=== PATIENT | male | born 1965 | race Caucasian/White ===

== ENCOUNTER 2017-10-16 15:40 | Inpatient (IN) | payer OTHER ==
[~2017-10-16] VITALS: Ht 182.9 cm; Wt 83.2 kg
[2017-10-16 15:48] VITALS: BP 167/120
[2017-10-16 16:50] LABS: BASO # 0.1 10*3/uL (0.0-0.1); BASO % 1.4 % (0.0-1.0); EOS # 0.1 10*3/uL (0.0-0.4); EOS % 1.7 % (1.0-4.0); HEMATOCRIT 45.7 % (42.0-52.0); HEMOGLOBIN 16.5 g/dl (14.0-18.0); LYMPH # 1.9 10*3/uL (1.3-4.4); MEAN CELL VOLUME 99.3 fl (80.0-94.0); MEAN CORPUSCULAR HGB 35.9 pg (27.0-31.0); MEAN CORPUSCULAR HGB CONC 36.1 g/dl (33.0-37.0); MEAN PLATELET VOLUME 8.8 fl (9.6-12.3); MONO # 0.3 10*3/uL (0.1-1.0); NEUT # 1.2 10*3/uL (2.3-7.9); NEUT % 33.9 % (47.0-73.0); PLATELET COUNT AUTOMATED 115 10*3/uL (130-400); RED CELL DISTRI WIDTH 12.4 % (0-14.5); WHITE BLOOD COUNT 3.5 10*3/uL (4.8-10.8)
[2017-10-16 16:59] LABS: ACT PARTIAL THROMBO TIME 21.8 SECONDS (20.8-31.5); INTERNATIONAL NORM RATIO 0.9 (2.0-3.5)
[2017-10-16 17:06] LABS: ALBUMIN 4.1 gm/dl (3.1-4.5); ALKALINE PHOSPHATASE 65 U/L (45-117); BUN 9 mg/dl (7-24); CHLORIDE 104 mmol/L (98-107); CREATININE 0.98 mg/dL (0.70-1.30); POTASSIUM 3.5 mmol/L (3.5-5.1); SGOT/AST 191 IU/L (3-35); SGPT/ALT 110 U/L (12-78); SODIUM 141 mmol/L (136-145); TOTAL PROTEIN 8.8 gm/dL (6.4-8.2)
[2017-10-16 17:17] VITALS: BP 144/90
[2017-10-17 06:46] VITALS: BP 132/70
[2017-10-17 07:49] VITALS: BP 116/93
[2017-10-17 07:52] LABS: BASO % 1.5 % (0.0-1.0); EOS # 0.1 10*3/uL (0.0-0.4); EOS % 2.3 % (1.0-4.0); HEMATOCRIT 43.9 % (42.0-52.0); HEMOGLOBIN 15.1 g/dl (14.0-18.0); LYMPH # 1.2 10*3/uL (1.3-4.4); MEAN CELL VOLUME 101.2 fl (80.0-94.0); MEAN CORPUSCULAR HGB 34.8 pg (27.0-31.0); MEAN CORPUSCULAR HGB CONC 34.4 g/dl (33.0-37.0); MEAN PLATELET VOLUME 8.8 fl (9.6-12.3); MONO # 0.3 10*3/uL (0.1-1.0); MONO % 12.8 % (3.0-9.0); PLATELET COUNT AUTOMATED 97 10*3/uL (130-400); RED BLOOD COUNT 4.34 10*6/uL (4.50-5.90); RED CELL DISTRI WIDTH 12.4 % (0-14.5); WHITE BLOOD COUNT 2.7 10*3/uL (4.8-10.8)
[2017-10-17 08:06] LABS: ALBUMIN 3.8 gm/dl (3.1-4.5); ALKALINE PHOSPHATASE 57 U/L (45-117); BUN 12 mg/dl (7-24); CHLORIDE 102 mmol/L (98-107); CREATININE 0.99 mg/dL (0.70-1.30); POTASSIUM 3.7 mmol/L (3.5-5.1); SGOT/AST 186 IU/L (3-35); SGPT/ALT 104 U/L (12-78); SODIUM 138 mmol/L (136-145)
[2017-10-17 08:32] VITALS: BP 116/93
[2017-10-17 09:25] LABS: BILIRUBIN 1+ (NEGATIVE); BLOOD 1+ (NEGATIVE); CLARITY CLOUDY (CLEAR); COLOR YELLOW (YELLOW); GLUCOSE NEGATIVE (NEGATIVE); KETONE TRACE (NEGATIVE); LEUKO ESTERASE TRACE (NEGATIVE); NITRITE NEGATIVE (NEGATIVE); PH 5.5 (5.0-9.0); SPECIFIC GRAVITY 1.025 (1.005-1.030)
[2017-10-17 09:33] LABS: URINE AMPHETAMINES < 1000 (1000ng/ml); URINE BARBITURATES < 200 (200ng/ml); URINE BENZODIAZEPINES < 200 (200ng/ml); URINE CANNABINOIDS (THC) < 50 (50ng/ml); URINE COCAINE < 300 (300ng/ml); URINE METHADONE < 300 (300ng/ml); URINE OPIATES < 300 (300ng/ml)
[2017-10-17 09:34] LABS: URINE PHENCYCLIDINE < 25 (25ng/ml)
[2017-10-17 09:45] LABS: WBC 16-20 wbc/hpf (0-5)
[2017-10-17 09:47] LABS: BACTERIA 1+; MUCOUS 1+
[2017-10-17 16:00] VITALS: BP 121/93
[2017-10-17 20:00] VITALS: BP 142/98
[2017-10-18] VITALS: BP 113/85
[2017-10-18 04:00] VITALS: BP 120/60
[2017-10-18 08:00] VITALS: BP 144/88
[2017-10-18 09:05] LABS: HEPATITIS B SURFACE AG Negative (Negative)
[2017-10-18 10:09] LABS: HEPATITIS C VIRUS ANTIBODY >11.0 s/co (0.0-0.9)
[2017-10-18 12:00] VITALS: BP 137/94
[2017-10-19 03:08] LABS: GONOCOCCUS BY NAA Negative (Negative)
== END 2017-10-18 15:47 | disposition left against medical advice (07) | DRG 894 ==
LOC: ED 15:40 → ICCU 10-17 06:44 → EDHOLD 10-17 06:44 → 5E 10-17 07:04 → ICCU 10-17 11:16
PROVIDERS: Emergency Medicine; Registered Nurse; Student in an Organized Health Care Education/Training Program
DX: F10.220 Alcohol dependence with intoxication, uncomplicated (principal); R65.10 Systemic inflammatory response syndrome (SIRS) of non-infectious origin without acute organ dysfunction; F41.9 Anxiety disorder, unspecified; F10.239 Alcohol dependence with withdrawal, unspecified; G47.00 Insomnia, unspecified; R74.0 Nonspecific elevation of levels of transaminase and lactic acid dehydrogenase [LDH]; Z53.21 Procedure and treatment not carried out due to patient leaving prior to being seen by health care provider; F17.210 Nicotine dependence, cigarettes, uncomplicated; Z86.19 Personal history of other infectious and parasitic diseases; Z71.6 Tobacco abuse counseling